=== PATIENT | male | born 1935 | race Caucasian/White ===

== ENCOUNTER 2018-02-08 18:44 | Inpatient (IN) ==
[2018-02-08] MEDS ORDERED: 0.9 % SODIUM CHLORIDE 1,000 ML IV ONE (19:04)
--- NOTE | 2018-02-08 19:25 | Emergency Department Note ---
Weakness HPI - General Chief complaint: Weakness Stated complaint: weakness Time Seen by Provider: 02/08/18 18:49 Source: patient, EMS Mode of arrival: ambulatory Limitations: no limitations - History of Present Illness HPI Narrative: 82-year-old male presents by EMS for hypotension and fall. His daughter came over to his house about 4 hours ago dropped off some things and she could not get into the house. She noticed that he was on the ground in the kitchen and was yelling that he was in the bedroom. He was face down. In the last couple of days he has had decreased appetite and has had some confusion. He had cataract surgery on Sunday. He lives at home and is independent but in this last week he has become more confused. He is confused today. His daughter states she talked to him last night and he was doing well and then came back today and he was on the floor. He denies any significant pain. EMS states he was at 86% oxygen at home and low blood pressure. No history of congestive heart failure. His daughter states he did not know who she was when she finally got in the house. She thinks he has been on level ground for at least 3 hours. She does not know before that. He is unable to give a recollection of this. When I ask him how he fell he states he tripped in the garage. He knows that he is at [facility] but does not know the date. He knows his daughter at this time. No focal deficits but he has global weakness. He does not take blood thinners. He states he did not take his blood pressure medication today. He has issues with high blood pressure usually. He seems to be a poor historian at this point. - Related Data Home Medications Medication Instructions Recorded Confirmed aspirin 81 mg tablet,delayed 81 mg PO QDAY 02/08/17 01/30/18 release vitamin B complex tablet 1 tab-cap PO QDAY 02/08/17 01/30/18 sodium chloride 0.65 % nasal spray 1 spray INTRANASAL Q4H PRN 10/02/17 01/30/18 aerosol Previous Rx's Medication Instructions Recorded losartan 50 mg tablet 50 mg PO BID #90 tab 01/30/18 umeclidinium 62.5 mcg-vilanterol 1 inh INHALATION Q24H #60 each 02/04/18 25 mcg/actuation powdr for inhalation Allergies Allergy/AdvReac Type Severity Reaction Status Date / Time No Known Drug Allergies Allergy Verified 01/30/18 08:00 Review of Systems All systems ED: reviewed and negative except as stated. Past Medical History - Past Medical History Medical history: Reports: COPD Psychiatric history: Reports: no psych history Surgical history ED: Reports: non-contributory Family history: Reports: non-contributory - Social History smoking status: Former smoker Physical Exam Right knee shows mild appearance and has significant bruising to his left elbow. He does not seem to have pain with range of motion but is tender over these bruises. He is unable to lift his arms and legs. He is able to squeeze slightly both of my fingers with both hands Limitations: no limitations General appearance: alert, in no apparent distress Head: atraumatic Eye: Present: normal appearance, PERRL, EOMI. Absent: conjunctival injection Neck: Present: normal inspection, full ROM. Absent: tenderness, lymphadenopathy Chest: Present: normal inspection, symmetric chest wall rise Respiratory: Present: wheezes (Mild throughout), other (Mild decreased right lower lobe) Cardiovascular: Present: tachycardia, normal heart sounds Abdominal: Present: soft, normal bowel sounds. Absent: tenderness Neurological: Present: alert, CN II-XII intact. Absent: oriented X3 Psychiatric: Present: flat affect Skin: Present: warm, dry, intact Course Course Narrative: ABG shows lactic acidosis. Normal pH. PCO2 28, PO2 56, hematocrit 43%, Given 2 L of oxygen and started on Levaquin. He will be admitted. Vital Signs Temperature 98 F 02/08/18 18:46 Pulse Rate 90 02/08/18 18:46 Respiratory Rate 26 H 02/08/18 18:46 Blood Pressure 100/71 02/08/18 18:46 Pulse Oximetry (%) 91 02/08/18 18:46 Temperature 98 F 02/08/18 18:46 Pulse Rate 103 H 02/08/18 21:11 Respiratory Rate 22 02/08/18 21:11 Blood Pressure 141/98 02/08/18 21:11 Pulse Oximetry (%) 93 02/08/18 21:11 Weakness - Lab Data Lab results reviewed: Yes I reviewed the patient's lab results. Result diagrams: 02/08/18 20:48 02/08/18 17:20 Lab Results 02/08/18 02/08/18 02/08/18 Range/Units 17:20 17:20 20:48 WBC TNP 22.0 H RBC TNP 4.99 Hgb TNP 14.6 Hct TNP 42.7 MCV TNP 85.6 MCH TNP 29.3 MCHC TNP 34.3 RDW TNP 14.1 Plt Count TNP 47 L* MPV TNP 8.7 Total Counted TNP Band Neutrophils % Not Reportable Not Reportable Platelet Estimate Not Reportable RBC Morphology Not Reportable Sodium 143 (133-145) mmol/L Potassium 3.7 (3.3-5.1) mmol/L Chloride 101 (96-108) mmol/L Carbon Dioxide 19 L (22-30) mmol/L Anion Gap 23.0 H (8-16) BUN 31 H (8-23) mg/dl Creatinine 1.4 H (0.7-1.2) mg/dl GFR Calculation 46 Glucose 140 H (70-105) mg/dL Calcium 8.6 (8.6-10.4) mg/dl Total Bilirubin 3.5 H (0.0-1.0) mg/dL AST 46 H (0-37) U/l ALT 15 (0-40) U/l Alkaline Phosphatase 124 H (39-117) U/L Total Creatine Kinase 833 H (24-195) IU/L CK-MB (CK-2) 23.5 H (0-4.9) ng/ml Myoglobin 876 H (28-72) ng/ml Total Protein 7.1 (5.9-8.4) gm/dL Albumin 3.5 (3.2-5.2) gm/dL Globulin 3.6 (2.2-3.7) gm/dL Albumin/Globulin Ratio 1.0 (1.0-2.3) Urine Color Urine Appearance Urine pH (5.0-9.0) Ur Specific [place] (1.000-1.035) Urine Protein (NEG) mg/dL Urine Glucose (UA) (NEG) mg/dL Urine Ketones (NEG) mg/dL Urine Occult Blood (<0.03) mg/dL Urine Nitrate (NEG) Urine Bilirubin (NEG) mg/dL Urine Urobilinogen (NEG) mg/dL Ur Leukocyte Esterase (NEG) /uL Urine RBC (0-1) /hpf Urine WBC (0-4) /hpf Ur Squamous Epith Cells (0-4) /hpf Ur Transition Epith Cell (0-2) /hpf Urine Bacteria (0) /hpf Cellular Casts (0) /lpf Hyaline Casts (0-2) /lpf Urine Mucus (0) /hpf Urine Yeast (Budding) (0) /hpf Ur Culture Indicated? 02/08/18 Range/Units 21:03 WBC RBC Hgb Hct MCV MCH MCHC RDW Plt Count MPV Total Counted Band Neutrophils % Platelet Estimate RBC Morphology Sodium (133-145) mmol/L Potassium (3.3-5.1) mmol/L Chloride (96-108) mmol/L Carbon Dioxide (22-30) mmol/L Anion Gap (8-16) BUN (8-23) mg/dl Creatinine (0.7-1.2) mg/dl GFR Calculation Glucose (70-105) mg/dL Calcium (8.6-10.4) mg/dl Total Bilirubin (0.0-1.0) mg/dL AST (0-37) U/l ALT (0-40) U/l Alkaline Phosphatase (39-117) U/L Total Creatine Kinase (24-195) IU/L CK-MB (CK-2) (0-4.9) ng/ml Myoglobin (28-72) ng/ml Total Protein (5.9-8.4) gm/dL Albumin (3.2-5.2) gm/dL Globulin (2.2-3.7) gm/dL Albumin/Globulin Ratio (1.0-2.3) Urine Color Rayna Urine Appearance Hazy Urine pH 5.0 (5.0-9.0) Ur Specific [place] 1.024 (1.000-1.035) Urine Protein 100 A (NEG) mg/dL Urine Glucose (UA) Negative (NEG) mg/dL Urine Ketones 5/tr A (NEG) mg/dL Urine Occult Blood 0.2 A (<0.03) mg/dL Urine Nitrate Neg (NEG) Urine Bilirubin Neg (NEG) mg/dL Urine Urobilinogen 4.0 A (NEG) mg/dL Ur Leukocyte Esterase Neg (NEG) /uL Urine RBC 3 H (0-1) /hpf Urine WBC 9 H (0-4) /hpf Ur Squamous Epith Cells 2 (0-4) /hpf Ur Transition Epith Cell < 1 (0-2) /hpf Urine Bacteria Few A (0) /hpf Cellular Casts 4 H (0) /lpf Hyaline Casts 121 H (0-2) /lpf Urine Mucus Many A (0) /hpf Urine Yeast (Budding) Few A (0) /hpf Ur Culture Indicated? Yes Disposition Pt seen by [employer] WORKER/PA only: No Clinical Impression: Rhabdomyolysis, Sepsis, UTI (urinary tract infection), Hypoxia Disposition: Xfer As Inpt ([facility]) Condition: Fair Referrals: Jann Hi PA-C [Primary Care Provider] -
[2018-02-08] MEDS: 0.9 % SODIUM CHLORIDE 1,000 ML IV ONE ×2 (19:30→20:10)
[2018-02-08 20:15] LABS: ALT/SGPT 15 U/l (0-40); Albumin 3.5 gm/dL (3.2-5.2); Alkaline Phosphatase 124 U/L (39-117); Blood Urea Nitrogen 31 mg/dl (8-23); Creatine Kinase 833 IU/L (24-195); Creatine Kinase MB 23.5 ng/ml (0-4.9); Myoglobin 876 ng/ml (28-72)
[2018-02-08] MEDS ORDERED: LEVOFLOXACIN 500 MG/100 ML BAG IV ONE (20:56)
[2018-02-08 21:35] LABS: Mean Cell Volume 85.6 fL (80.0-100.0); Mean Corpuscular HGB Conc 34.3 g/dL (31.0-36.0); Mean Corpuscular Hemoglobin 29.3 pg (26.0-34.0); Platelet Count 47 K/mcL (140-440); RBC 4.99 M/mcL (4.50-5.90); Red Cell Distribution Width 14.1 % (11.5-14.5)
[2018-02-08 21:42] LABS: Appearance,Urine HAZY; Bacteria,Urine FEW /hpf (0); Bilirubin,Urine NEG (NEG); Color,Urine AMBER; Glucose,Urine (UA) NEGATIVE (NEG); Leukocyte Esterase,Urine NEG /uL (NEG); Mucus,Urine MANY /hpf (0); Protein,Urine 100 mg/dL (NEG); Specific Gravity,Urine 1.024 (1.000-1.035); Urine Blood 0.2 mg/dL (<0.03); Urine Budding Yeast FEW /hpf (0); Urine Cellular Cast 4 /lpf (0); Urine Hyaline Cast 121 /lpf (0-2); Urine RBC 3 /hpf (0-1); Urine Squamous Epithelial Cell 2 /hpf (0-4); Urine Transitional Epi Cells < 1 /hpf (0-2); Urine WBC 9 /hpf (0-4)
--- NOTE | 2018-02-08 21:53 | Internal Med History&Physical ---
Medical - H&P: HPI Patient information: Note initiated : 02/08/18 at 9:51 pm Service Date, if different from initiated Date: [] Patient: Rey Klein 82 y/o M admitted on for weakness. Chief complaint: Weakness, found down History of present illness: Patient is an 82-year-old male with history of COPD, hypertension, history of benign vertigo in the past who was brought to the ED by EMS after being found down on the floor by his daughter. History is obtained in speaking with Dr. Jeronimo from the ED, reviewing the chart and old records which are summarized below, and interviewing the patient, was able to provide significant history by the time I see him. Patient states he fell to the floor last evening. When queried several times he is certain that it was last evening and they spent the night on his kitchen floor. He remembers talking to his daughter last evening, that's when she last spoke to him and do that he was well. He states he fell after that. He does not necessarily recall falling, does not recall tripping. States he just "fell over". Denies any antecedent chest pain or tightness. Unsure if he had loss of consciousness or dizziness prior to the fall. He does not remember. He states he spent the night there, his daughter knows that he was down for at least over 4 hours, she eventually found him face down on the kitchen floor. Upon EMS arrival, his blood pressure was low, reported as 80 over palp. In the ED blood pressure is been in the 90 to 100s, improving to the 120s after fluid. Pulse was initially 118, that has decreased into the low 100s. His initial oxygen saturation in the field was 86%, increased to 90% on 3-1/2 L, now maintaining 90% on 2 L. In the emergency department, is found to have leukocytosis; and as noted above, tachycardia and low blood pressures in the field, which responded to fluids; evidence of significant pyuria and bacteriuria consistent with acute cystitis. Lactate on ABG was elevated 2.5 consistent with sepsis. He is being admitted for sepsis from urinary source. Patient is complaining of some burning with urination. He denies any fevers or chills. He has chronic cough productive of whitish sputum, occurs more in the morning. He is being treated for COPD. He's had no nausea, vomiting, abdominal pain, diarrhea. She had no focal weaknesses, but just felt generally weak all over and was unable to get up from the floor. He denies any pain in his hips or pelvis. He did have some mid to lower back pain when he is rolled over, that is now resolved. 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 Former smoker. Does not drink alcohol. Medical - H&P: Meds Home Medications Medication Instructions Recorded Confirmed Type aspirin 81 mg tablet,delayed 81 mg PO QDAY 02/08/17 01/30/18 History release vitamin B complex tablet 1 tab-cap PO QDAY 02/08/17 01/30/18 History sodium chloride 0.65 % nasal spray 1 spray INTRANASAL Q4H PRN 10/02/17 01/30/18 History aerosol losartan 50 mg tablet 50 mg PO BID #90 tab 01/30/18 01/30/18 Rx umeclidinium 62.5 mcg-vilanterol 1 inh INHALATION Q24H #60 each 02/04/18 Rx 25 mcg/actuation powdr for inhalation Allergies Allergy/AdvReac Type Severity Reaction Status Date / Time No Known Drug Allergies Allergy Verified 01/30/18 08:00 Medical - H&P: Exam - Constitutional Vitals: Temp Pulse Resp BP Pulse Ox 98 F 103 H 22 141/98 93 02/08/18 18:46 02/08/18 21:11 02/08/18 21:11 02/08/18 21:11 02/08/18 21:11 GENERAL: Alert, oriented, in no acute distress. Cooperative, appears stated age. HEENT: Atraumatic. PERRL, 3 mm, conjunctiva clear, no scleral icterus. Hearing grossly intact. Oropharynx with tacky mucous membranes, no lip or gum lesions, no pharyngeal erythema or exudate. Tongue midline, palate rises symmetrically. NECK: Supple without meningismus, no thyromegaly RESPIRATORY: Breath sounds clear bilaterally without wheezes or rhonchi. Respiratory effort is unlabored. CARDIOVASCULAR: Regular rate and rhythm, no murmur gallop or rub. No peripheral edema. Carotid pulses 2+. GI: Abdomen soft, mild suprapubic tenderness, no guarding or rebound. Bowel sounds are present. No hepatosplenomegaly. LYMPHATIC: No cervical or supraclavicular lymphadenopathy MUSCULOSKELETAL: No joint erythema or swelling, no pain with passive range of motion of the hips, no pain with pelvic rock. Range of motion in extremities normal for age. Muscle mass diminshed throughout. Strength 4-/5 at the hip flexors, 4+/5 at the knees and ankles. Universal Grinder Tool 5/5. SKIN: Warm, dry. Eccymoses and mottling on the left>right knees. Skin turgor decreased. NEUROLOGIC: Cranial nerves II through XII grossly intact. Deep tendon reflexes 2+ at the biceps and 1+ at the patellas. Sensation intact to light touch bilaterally. PSYCHIATRIC: Alert, oriented x3, normal affect, good insight into his condition. Medical - H&P: Reslt - Labs CBC & Chem 7: 02/08/18 20:48 02/08/18 17:20 Labs: Short CBC 02/08/18 02/08/18 Range/Units 17:20 20:48 WBC TNP 22.0 H Hgb TNP 14.6 Hct TNP 42.7 Plt Count TNP 47 L* BMP 02/08/18 17:20 Sodium 143 Potassium 3.7 Chloride 101 Carbon Dioxide 19 L BUN 31 H Creatinine 1.4 H Glucose 140 H Calcium 8.6 Cardiac Enzymes 02/08/18 Range/Units 17:20 Total Creatine Kinase 833 H (24-195) IU/L CK-MB (CK-2) 23.5 H (0-4.9) ng/ml Liver Function 02/08/18 Range/Units 17:20 Total Bilirubin 3.5 H (0.0-1.0) mg/dL AST 46 H (0-37) U/l ALT 15 (0-40) U/l Alkaline Phosphatase 124 H (39-117) U/L Albumin 3.5 (3.2-5.2) gm/dL Urine 02/08/18 Range/Units 21:03 Urine Color Rayna Urine Appearance Hazy Urine pH 5.0 (5.0-9.0) Ur Specific [place] 1.024 (1.000-1.035) Urine Protein 100 A (NEG) mg/dL Urine Glucose (UA) Negative (NEG) mg/dL - EKG Data -: EKG Reviewed by Myself (ST at 103, RBBB, no acute changes) - Impressions Chest x-ray, reviewed, right hilar fullness persists from film earlier this month, no apparent acute infiltrate Medical - H&P: A/P (1) Sepsis Current visit: Yes Status: Acute (2) UTI (urinary tract infection) Current visit: Yes Status: Acute (3) Thrombocytopenia Current visit: Yes Status: Acute (4) Rhabdomyolysis Current visit: Yes Status: Acute - Narrative A/P Narrative: 82-year-old male, found down after a ground-level fall, found evidence of sepsis as well as mild rhabdomyolysis and thrombocytopenia. Sepsis. Presumptive source is the urine. Urine dip showed positive leukocyte esterase as well as nitrite, though formal lab testing reports those negative. He does have pyuria with bacteriuria concerning for urinary infection. Chest x- ray generally clear, he has stable mild pulmonary symptoms, so that's less likely a source. Usually confused, now awake and alert after receiving fluids and initial dose of antibiotics, DEVELOPER ANALYST infection is lower suspicion. Plan: Inpatient admission, continue IV fluids, continue levofloxacin, follow-up cultures, recheck lactate in 3 hours. Urinary tract infection. Presumptive with pyuria and bacteriuria. Plan: Continue with levofloxacin, follow-up culture. Thrombocytopenia. Platelet count 47,000. Most recently his platelet counts have been elevated over 500,000. Etiology unclear, could be related to sepsis. Do not suspect TTP. Would be unlikely to develop ITP in a short period of time, though remains possible. Manual inspection reported markedly reduced platelets and no mention of clumping, so 47,000 may be a true platelet count. Plan: Trend platelets. Acute hypoxic respiratory failure. Patient requiring oxygen to maintain adequate saturations. He is not on oxygen at home. Etiology may be from sepsis. Has improved initially. Plan: Continue with supplemental oxygen, wean as able. Consider further imaging if he continues to require oxygen. Rhabdomyolysis, mild. CPK total in the 800s. Minimal risk for nephrotoxicity at this level. Plan: Continue IV fluids, trend CK. Renal insufficiency. Patient appears to have chronic kidney disease, baseline creatinine 1.0-1.1. Now mildly elevated at 1.4, likely from prerenal causes from being down. Plan: Trend creatinine with fluids. Hypertension. Blood pressure was low at presentation, likely from accommodation of sepsis and dehydration from being down.. His improved after fluids. Plan: Hold antihypertensives for now, follow blood pressure COPD without exacerbation. Plan: Schedule DuoNeb. Prophylaxis: SCDs, will avoid heparins given his low platelet count. PPI. CODE STATUS: DO NOT RESUSCITATE.
[2018-02-08 22:16] LABS: Anisocytosis 1+ (NONE SEEN); Band Neutrophils % 17 % (0-10); Lymphocytes % 1 % (15-49); Metamyelocytes % 1 % (0-0); Monocytes % (Manual) 2 % (1-12); Platelet Estimate MKDECR (NORMAL); RBC Morphology ABNORMAL (NORMAL); Segmented Neutrophils % 77 % (38-78)
[2018-02-08] MEDS ORDERED: ONDANSETRON 4 MG/2 ML VIAL IV PRN (23:05)
[2018-02-08] MEDS ORDERED: HYDROcodone/APAP 5/325MG TABLET PO PRN (23:05)
[2018-02-08] MEDS ORDERED: ACETAMINOPHEN 325 MG TABLET PO PRN (23:05)
[2018-02-08] MEDS: 0.9 % SODIUM CHLORIDE 1,000 ML IV SCH (23:50)
[2018-02-09 05:10] LABS: Mean Cell Volume 88.3 fL (80.0-100.0); Mean Corpuscular HGB Conc 33.6 g/dL (31.0-36.0); Mean Corpuscular Hemoglobin 29.7 pg (26.0-34.0); Platelet Count 34 K/mcL (140-440); RBC 4.72 M/mcL (4.50-5.90); Red Cell Distribution Width 15.2 % (11.5-14.5)
[2018-02-09 05:21] LABS: Blood Urea Nitrogen 31 mg/dl (8-23)
--- NOTE | 2018-02-09 05:54 | XRay Report ---
CLINICAL INFORMATION: Trauma and hypoxia COMPARISON: Plain films from 11/29/2010, 04/07/2017 and 01/30/2018. Also chest CT from 12/05/2010 FINDINGS: Mild cardiomegaly is unchanged. There is mild enlargement of the right hilum and also mediastinal widening with increased density in the right peritracheal region which was not seen on older films. Suspect adenopathy or mass in these regions. It is also mildly narrowed the trachea. Underlying chronic bronchitis changes are noted. There is mild chronic interstitial fibrosis in the periphery of both lungs. Scattered left-sided calcified pleural plaques are noted. The IMPRESSION: Mild enlargement of the right hilum and widening of the mediastinum which were not seen on older films. Adenopathy in these regions is suspected, suggest chest CT Underlying chronic bronchitis and minimal interstitial fibrosis. Interstitial lung disease will also be better assessed with chest CT Scattered left-sided calcific pleural plaque - typically stigmata of old infection or hemorrhage. Interpreted and Authenticated by: Ryan Delatorre 02/09/18
[2018-02-09] MEDS: 0.9 % SODIUM CHLORIDE 10 ML SYRINGE IV SCH ×3 (05:56→21:52)
[2018-02-09] MEDS: IPRATROPIUM/ALBUTEROL 3 ML AMPUL.NEB NEB SCH ×4 (05:56→18:06)
[2018-02-09 05:57] LABS: Band Neutrophils % 11 % (0-10); Lymphocytes % 6 % (15-49); Monocytes % (Manual) 4 % (1-12); Platelet Estimate MK DECR (NORMAL); RBC Morphology NORMAL (NORMAL); Segmented Neutrophils % 79 % (38-78)
[2018-02-09] MEDS ORDERED: IPRATROPIUM/ALBUTEROL 3 ML AMPUL.NEB NEB ONE (05:57)
[2018-02-09] MEDS ORDERED: FAMOTIDINE 20 MG TABLET PO SCH (09:00)
--- NOTE | 2018-02-09 09:34 | Cat Scan Report ---
CLINICAL INFORMATION: Trauma - fall confusion and weakness COMPARISON: None. TECHNIQUE: 2.5 mm helical slices were obtained in the skull base to vertex. Following reconstruction, axial reformatted images were reviewed at bone and parenchymal windows. The exam was performed using radiation dose optimization techniques including, but not limited to, automated exposure control, adjustment of the mA and/or kV according to patient size and use of iterative reconstruction technique. FINDINGS: The ventricles, sulci, fissures, and cisterns are symmetrically enlarged compatible with moderate age-related atrophy - no extra-axial fluid collection or mass appreciated. Extensive chronic ischemic changes in the cerebral white matter appreciated. There is no intracerebral hemorrhage, edema or mass effect. Bone windows show no osseous abnormality. IMPRESSION: Moderate atrophy and extensive chronic ischemic changes in the deep cerebral white matter. No intracerebral hemorrhage, edema or other acute finding. Interpreted and Authenticated by: Ryan Delatorre 02/09/18
[2018-02-09 09:42] LABS: Bilirubin,Direct 0.7 mg/dL (0.0-0.3)
[2018-02-09] MEDS: LEVOFLOXACIN 500 MG/100 ML BAG IV SCH (09:43)
--- NOTE | 2018-02-09 11:06 | Internal Med Progress Note ---
Medical - PN: Subj Patient information: Note initiated : 02/09/18 at 11:02 am Service Date, if different from initiated Date: [] Patient: Rey Klein 82 y/o M admitted on 02/08/18 for weakness. Chief Complaint: f/u Sepsis, new possible CVA Interval history: 02/08 Patient is an 82-year-old male with history of COPD, hypertension, history of benign vertigo in the past who was brought to the ED by EMS after being found down on the floor by his daughter. History is obtained in speaking with Dr. Jeronimo from the ED, reviewing the chart and old records which are summarized below, and interviewing the patient, was able to provide significant history by the time I see him. Patient states he fell to the floor last evening. When queried several times he is certain that it was last evening and they spent the night on his kitchen floor. He remembers talking to his daughter last evening, that's when she last spoke to him and do that he was well. He states he fell after that. He does not necessarily recall falling, does not recall tripping. States he just "fell over". Denies any antecedent chest pain or tightness. Unsure if he had loss of consciousness or dizziness prior to the fall. He does not remember. He states he spent the night there, his daughter knows that he was down for at least over 4 hours, she eventually found him face down on the kitchen floor. Upon EMS arrival, his blood pressure was low, reported as 80 over palp. In the ED blood pressure is been in the 90 to 100s, improving to the 120s after fluid. Pulse was initially 118, that has decreased into the low 100s. His initial oxygen saturation in the field was 86%, increased to 90% on 3-1/2 L, now maintaining 90% on 2 L. In the emergency department, is found to have leukocytosis; and as noted above, tachycardia and low blood pressures in the field, which responded to fluids; evidence of significant pyuria and bacteriuria consistent with acute cystitis. Lactate on ABG was elevated 2.5 consistent with sepsis. He is being admitted for sepsis from urinary source. Patient is complaining of some burning with urination. He denies any fevers or chills. He has chronic cough productive of whitish sputum, occurs more in the morning. He is being treated for COPD. He's had no nausea, vomiting, abdominal pain, diarrhea. She had no focal weaknesses, but just felt generally weak all over and was unable to get up from the floor. He denies any pain in his hips or pelvis. He did have some mid to lower back pain when he is rolled over, that is now resolved. 02/09 Called this morning, approximately 8:20, neuro check reveals left-sided weakness. This is a new finding. He was generally weak and admission, which was status during initial assessment about 10:30 last evening upon arrival to the floor. Code stroke activated, repeat head CT does not show new findings, chronic old ischemic changes are present however. Discussed with the tele- stroke service, patient is not a candidate for treatment based on both time frame since onset of symptoms as well as his thrombocytopenia. Patient initially some dysarthria, has improved somewhat. Notes he's having trouble moving his left arm. Still with some dyspnea, coughing. Provides further history that he had hemoptysis during 2016 after he stopped smoking in October of that year. Reviewing clinic notes, he did report that he is coughing up clear phlegm to his primary care provider, but did not report the hemoptysis. Old imaging reviewed, his chest radiograph from 10 days ago (obtained due to his COPD) revealed possible narrowing of the trachea as well as right hilar fullness. Some point need had imaging showing a right hilar nodule, though seems to be more prominent. His white count remains elevated, his lactate went to 3/90, repeat is pending, is continued to be hydrated. Platelets have dropped to 34,000. Slide review shows markedly decreased platelet count, no comment on large platelets are clumping. Bandemia is improving. Hemodynamics have improved, blood pressures are normal/high normal, creatinine has normalized to his baseline at 1.1. - Constitutional Vitals: Vital Signs Temp Pulse Resp BP Pulse Ox 98.3 F 108 H 27 H 126/90 90 02/09/18 04:01 02/09/18 06:07 02/09/18 04:08 02/09/18 04:01 02/09/18 04:08 Period Temp Pulse Resp BP Sys/Flores Pulse Ox Last 24 Hr 98 F-98.3 F 90-110 19-32 84-145/65-98 85-100 Intake and Output 02/08/18 02/09/18 02/09/18 21:59 05:59 13:59 Intake Total 1000 / 1000 1250 / 1250 Output Total 2 / 2 Balance 1000 / 1000 1248 / 1248 Weight 174 lb 174 lb General: In bed, no distress Chest: Coarse bilateral breath sounds, no wheezes. Cardiovascular: Regular rate and rhythm. No edema Abdomen: Soft, nontender Neuro: Alert, oriented to person, place, situation, date. Mild dysarthria. Pupils are equal. Face is symmetric at my exam. Motor on the left upper extremity shows 2/5 at the left shoulder, 3/5 at the triceps, 2/5 at the biceps , 3/5 in the maint mechanic. Motor in the left lower extremity, 2/5 in hip flexors, knee flexors, knee extensors. 3/5 ankle flexors and extensors. On the right upper extremity, 5-/5 strength, in the right lower extremity he is unable to flex his hip off the bed, however once its raise passively he is able to hold it against gravity and provide some resistance. This is the same exam as yesterday. Intake & Output: Intake & Output 02/08/18 02/09/18 02/09/18 21:59 05:59 13:59 Intake Total 1000 / 1000 1250 / 1250 Output Total 2 / 2 Balance 1000 / 1000 1248 / 1248 Weight 174 lb 174 lb Intake: IV 1000 / 1000 1100 / 1100 Sodium Chloride 0.9% 1,000 ml @ 1000 / 1000 1000 / 1000 Wide Open IV BOLUS ONE Rx#: [id number] Oral 150 / 150 Output: # of times incontinent of urine / Medical - PN: Obj Da - Labs CBC & Chem 7: 02/09/18 03:40 02/09/18 03:40 Labs: Abnormal Lab Results 02/09/18 02/09/18 02/09/18 08:56 03:50 03:40 WBC 21.8 H RDW 15.2 H Plt Count 34 L* Seg Neutrophils % 79 H Band Neutrophils % 11 H Lymphocytes % 6 L Metamyelocytes % Nucleated RBCs Platelet Estimate Mk decr A Polychromasia Anisocytosis POC PT 18.4 H POC INR 1.6 H VBG Lactic Acid Carbon Dioxide Anion Gap BUN Creatinine Glucose Calcium Total Bilirubin 3.2 H Direct Bilirubin 0.7 H AST 49 H Alkaline Phosphatase Total Creatine Kinase 720 H CK-MB (CK-2) Myoglobin Albumin 3.0 L Urine Protein Urine Ketones Urine Occult Blood Urine Urobilinogen Urine RBC Urine WBC Urine Bacteria Cellular Casts Hyaline Casts Urine Mucus Urine Yeast (Budding) 02/09/18 02/09/18 02/08/18 03:40 01:40 21:03 WBC RDW Plt Count Seg Neutrophils % Band Neutrophils % Lymphocytes % Metamyelocytes % Nucleated RBCs Platelet Estimate Polychromasia Anisocytosis POC PT POC INR VBG Lactic Acid 3.0 H Carbon Dioxide 18 L Anion Gap 20.0 H BUN 31 H Creatinine Glucose Calcium 7.9 L Total Bilirubin Direct Bilirubin AST Alkaline Phosphatase Total Creatine Kinase CK-MB (CK-2) Myoglobin Albumin Urine Protein 100 A Urine Ketones 5/tr A Urine Occult Blood 0.2 A Urine Urobilinogen 4.0 A Urine RBC 3 H Urine WBC 9 H Urine Bacteria Few A Cellular Casts 4 H Hyaline Casts 121 H Urine Mucus Many A Urine Yeast (Budding) Few A 02/08/18 02/08/18 20:48 17:20 WBC 22.0 H RDW Plt Count 47 L* Seg Neutrophils % Band Neutrophils % 17 H Lymphocytes % 1 L Metamyelocytes % 1 H Nucleated RBCs 1 H Platelet Estimate Polychromasia Occ A Anisocytosis 1+ A POC PT POC INR VBG Lactic Acid Carbon Dioxide 19 L Anion Gap 23.0 H BUN 31 H Creatinine 1.4 H Glucose 140 H Calcium Total Bilirubin 3.5 H Direct Bilirubin AST 46 H Alkaline Phosphatase 124 H Total Creatine Kinase 833 H CK-MB (CK-2) 23.5 H Myoglobin 876 H Albumin Urine Protein Urine Ketones Urine Occult Blood Urine Urobilinogen Urine RBC Urine WBC Urine Bacteria Cellular Casts Hyaline Casts Urine Mucus Urine Yeast (Budding) Meds: Medications Acetaminophen (Tylenol) 650 mg PO Q6HP PRN PRN Reason: PAIN/FEVER > 101 Hydrocodone Bitart/Acetaminophen (Eminence 5/325mg) 1 tab PO Q4HP PRN PRN Reason: PAIN LEVEL 3-6 Albuterol/Ipratropium (Duoneb) 3 [id number] Last Admin: 02/09/18 06:04 Dose: Not Given Levofloxacin (Levaquin) 500 mg in 100 mls @ 100 mls/hr IV Q24H [facility] Last Admin: 02/09/18 09:43 Dose: 100 mls/hr Sodium Chloride (Sodium Chloride 0.9%) 1,000 mls @ 100 mls/hr IV .Q10H [facility] Last Admin: 02/08/18 23:50 Dose: 100 mls/hr Ondansetron HCl (Zofran) 4 mg IV Q4HP PRN PRN Reason: Nausea And Vomiting Sodium Chloride (Saline Flush) 10 ml IV Q8 [facility] Last Admin: 02/09/18 05:56 Dose: 10 ml - Impressions Scans reviewed and discussed with Dr. Ocasio at time of reading 02/[address] head 02/09 AM FINDINGS: The ventricles, sulci, fissures, and cisterns are symmetrically enlarged compatible with moderate age-related atrophy - no extra-axial fluid collection or mass appreciated. Extensive chronic ischemic changes in the cerebral white matter appreciated. There is no intracerebral hemorrhage, edema or mass effect. Bone windows show no osseous abnormality. IMPRESSION: Moderate atrophy and extensive chronic ischemic changes in the deep cerebral white matter. No intracerebral hemorrhage, edema or other acute finding. CT Head 02/08 PM, final report FINDINGS: The ventricles, sulci, fissures, and cisterns are symmetrically enlarged compatible with moderate age-related atrophy - no extra-axial fluid collection or mass appreciated. Extensive chronic ischemic changes in the cerebral white matter appreciated. There is no intracerebral hemorrhage, edema or mass effect. Bone windows show no osseous abnormality. IMPRESSION: Moderate atrophy and extensive chronic ischemic changes in the deep cerebral white matter. No intracerebral hemorrhage, edema or other acute finding. Medical - PN: A/P - Time Spent With Patient Total time spent is greater than 50% in coordination of care (as documented) at patient's floor/unit and/or counseling patient: Greater than 35 minutes (40 minutes critical care time 02/09/18) (1) Right-sided cerebrovascular accident (CVA) Status: Acute Current Visit: Yes (2) Sepsis Status: Acute Current Visit: Yes (3) UTI (urinary tract infection) Status: Acute Current Visit: Yes (4) Thrombocytopenia Status: Acute Current Visit: Yes (5) Rhabdomyolysis Status: Acute Current Visit: Yes (6) Acute respiratory failure with hypoxia Status: Acute Current Visit: Yes - Narrative A/P Narrative: 82-year-old male, found down after a ground-level fall, found evidence of sepsis as well as mild rhabdomyolysis and thrombocytopenia. Now with acute left -sided weakness. Left-sided weakness, concern for acute CVA. Patient was generally weak on exam yesterday in the ED, and upon arrival. He denies any recent focal weaknesses. The findings this morning are new. Stat CT is unchanged, chronic ischemic changes. Discussed with stroke service, given timing of symptoms (last known normal at about 10:30 last night) and his significant thrombocytopenia, not a candidate for further lytic treatments. Plan: Obtain MRI to definitively evaluate for cerebral ischemia. Patient is not a candidate for antiplatelet therapy given his thrombocytopenia, will not give aspirin or Plavix. He has mild rhabdo, at this point will avoid statins as well. Plan to maintain perfusion, allow permissive hypertension, keep hydrated, PT/OT/ST evaluations. Echocardiogram when available. Ending findings of MRI, will need imaging of the cerebral vasculature as well. Sepsis. Presumptive source is the urine. Lactate remained elevated overnight, repeat lactate is pending. His remained afebrile. Pulse steady at about 100. Blood pressure is normal. Plan: Continue IV fluids, continue levofloxacin, follow-up cultures and lactate. Urinary tract infection. Presumptive with pyuria and bacteriuria. Plan: Continue with levofloxacin, follow-up culture. Thrombocytopenia. Platelet count now 34,000. Last laboratory values available showed platelet count of 500,000 in 02/2017, with normal white count and hemoglobin. Peripheral smear shows markedly decreased platelets, no clumping or large platelets. No evidence of purpura, does not have concurrent anemia, however still has leukocytosis. This does not appear to be a microangiopathic hemolytic anemia type syndrome or TTP. Given development of leukocytosis with immature granulocytes on smear and low platelets, query whether this could be a primary bone marrow process such as leukemia. Unlikely marrow failure, given normal hemoglobin. ITP possibility, as is sepsis related. Patient does have a history of significant alcohol use in the past, is tapered off, occult hypersplenism is also a possibility. Plan: Trend platelets, avoid aspirin and Plavix, imaging the abdomen, least upper cuts will be obtained with CT of the chest which is being obtained for reasons noted below. Acute hypoxic respiratory failure. Patient still requiring oxygen to maintain adequate saturations. He is not on oxygen at home, but does carry a diagnosis of COPD and does use an inhaler. Radiographs are reviewed, does have abnormal chest radiograph, which seems to progressed over the last year. Also now gives a history of hemoptysis last year. Plan: Continue with supplemental oxygen, wean as able. CT of the chest, including CT angiography to rule out pulmonary embolism (query PE and syncope as cause of fall). Rhabdomyolysis, mild. CPK total in the 800s. Minimal risk for nephrotoxicity at this level. Plan: Continue IV fluids, trend CK. Renal insufficiency. Resolved with IV fluids, back to baseline. Plan: Trend creatinine. Hypertension. Blood pressure was low at presentation, likely from accommodation of sepsis and dehydration from being down. Resolved after fluid resuscitation. Plan: Hold antihypertensives given new possible stroke, allow permissive hypertension, follow blood pressure COPD without exacerbation. Plan: Schedule DuoNeb. Medical - PN: Qual - VTE Deep Vein Thrombosis/Pulmonary Embolism Present on Admission: No
[2018-02-09] MEDS: 0.9 % SODIUM CHLORIDE 1,000 ML IV SCH ×2 (13:00→19:28)
--- NOTE | 2018-02-09 13:04 | Magnetic Resonance Report ---
CLINICAL INFORMATION: Left-sided weakness confusion COMPARISON: None. TECHNIQUE: Sagittal T1, axial diffusion ADC T2 FLAIR images were taken. Exam was suboptimal due to motion artifact FINDINGS: Diffusion images show multiple foci of restricted diffusion involving the cortical and subcortical white matter of both frontal, parietal and occipital lobes - more prominent near vertex. There are also extensive foci of restricted diffusion in the the peripheral cerebellar hemispheres. Findings compatible with multiple acute nonhemorrhagic lacunar infarcts. The ventricle, sulci, fissures and cisterns are symmetrically enlarged compatible with moderate atrophy. No extra-axial fluid collections appreciated. Extensive chronic ischemic changes noted in the the cerebral white matter. Small amount of edema is seen about the acute infarct infarct, but no evidence of hemorrhage. IMPRESSION: Multiple acute nonhemorrhagic lacunar infarcts widely disseminated throughout the cortical and subcortical white matter of the frontal, parietal, occipital and posterior cerebellum. Most common cause would be multiple emboli from a cardiac source. Interpreted and Authenticated by: Ryan Delatorre 02/09/18
[2018-02-09] MEDS ORDERED: IOPAMIDOL 100 ML BOTTLE IV ONE (13:21)
[2018-02-09] MEDS ORDERED: 0.9 % SODIUM CHLORIDE 1,000 ML IV ONE (14:32)
--- NOTE | 2018-02-09 17:44 | Cat Scan Report ---
CLINICAL INFORMATION: Shortness of breath. Right hilar mass and mediastinal adenopathy COMPARISON: Chest CT 12/05/2010. TECHNIQUE: 80 cc of Isovue-300 were injected intravenously. Using SmartPrep to maximize pulmonary artery opacification, 2.5 mm helical slices were obtained from the lung apices through the lung bases. Following reconstruction, 2.5 mm sagittal, coronal, and axial reformations were processed. The exam was reviewed at mediastinal, lung, and bone windows. The exam was performed using radiation dose optimization techniques including, but not limited to, automated exposure control, adjustment of the mA and/or kV according to patient size and use of iterative reconstruction technique. FINDINGS: There is a large (6 cm) mass in the right inferior hilum which has completely obstructed the right lower lobe bronchus and markedly narrowed the right lower lobe pulmonary artery. As result, there is complete atelectasis of the right lower lobe. There is also endobronchial mass extension into the bronchus intermedius and right mainstem bronchus which are both subtotally occluded. Mild underlying chronic bronchitis throughout both lungs with mild scattered areas of fibrosis which has progressed from the previous study. Small right pleural effusion noted. There are markedly enlarged lymph nodes in the right hilum, pericarinal and right peritracheal region which are new. Moderately enlarged lymph nodes in the AP window and aortic arch region are seen as well. The thoracic aorta is normal in contour and caliber with heavy fibrofatty calcific plaque. There is scattered emboli within the pulmonary arteries with a small saddle emboli in the left upper and left lower lobe pulmonary arteries and occlusive embolus in the posterior and anterior segmental left lower lobe pulmonary arteries and also the subsegmental anterior segment left upper lobe. Esophagus is grossly normal. The heart is mildly enlarged and there is fibrofatty calcific plaque in the coronary arteries. 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 There is also endobronchial extension into the bronchus intermedius and right mainstem bronchus which are subtotally occluded. Markedly enlarged lymph nodes in the right hilum, the pericarinal and right peritracheal region are almost certainly metastatic. If tissue diagnosis is desired, suggest CT-guided biopsy of large right infrahilar mass Scattered segmental and subsegmental pulmonary artery emboli Small right pleural effusion Underlying chronic bronchitis Interpreted and Authenticated by: Ryan Delatorre 02/09/18
--- NOTE | 2018-02-09 17:47 | Cat Scan Report ---
CLINICAL INFORMATION: Multiple embolic infarcts in the cerebrum COMPARISON: None. TECHNIQUE: 80 cc of Isovue-300 were injected intravenously , and using SmartPrep to maximize cerebral arterial opacification, 0.625 mm helical slices were obtained from the skull base through the cerebral vertex. Following reconstruction , sagittal, coronal and axial reformatted images were processed and reviewed at multiple windows and levels. 3D volume rendered and MIP images were acquired at a independent workstation. The exam was performed using radiation dose optimization techniques including, but not limited to, automated exposure control, adjustment of the mA and/or kV according to patient size and use of iterative reconstruction technique. FINDINGS: Thoracic aortic arch is normal in diameter with diffuse intimal thickening. Aortic branching is conventional. The brachiocephalic, both subclavian, vertebral, common, internal and external carotid arteries are widely patent. IMPRESSION: Negative Arteriogram Interpreted and Authenticated by: Ryan Delatorre 02/09/18
--- NOTE | 2018-02-09 17:50 | Cat Scan Report ---
CLINICAL INFORMATION: COMPARISON: None. TECHNIQUE: 80 cc of Isovue-300 were injected intravenously , and using SmartPrep to maximize cerebral arterial opacification, 0.625 mm helical slices were obtained from the skull base through the cerebral vertex. Following reconstruction , sagittal, coronal and axial reformatted images were processed and reviewed at multiple windows and levels. 3D volume rendered and MIP images were acquired at a independent workstation. The exam was performed using radiation dose optimization techniques including, but not limited to, automated exposure control, adjustment of the mA and/or kV according to patient size and use of iterative reconstruction technique. FINDINGS: Intracranial internal carotid, anterior and middle cerebral, intracranial vertebral basilar and posterior cerebral arteries are normal in contour and caliber and well opacified. No evidence of occlusion or significant stenosis IMPRESSION: Negative Interpreted and Authenticated by: Ryan Delatorre 02/09/18
[2018-02-10] MEDS: 0.9 % SODIUM CHLORIDE 1,000 ML IV SCH (04:19)
[2018-02-10 05:38] LABS: Blood Urea Nitrogen 25 mg/dl (8-23)
[2018-02-10] MEDS: IPRATROPIUM/ALBUTEROL 3 ML AMPUL.NEB NEB SCH ×2 (05:46→12:22)
[2018-02-10 05:47] LABS: Band Neutrophils % 7 % (0-10); Lymphocytes % 3 % (15-49); Monocytes % (Manual) 6 % (1-12); Platelet Estimate NORMAL (NORMAL); RBC Morphology NORMAL (NORMAL); Segmented Neutrophils % 84 % (38-78)
[2018-02-10 05:53] LABS: Mean Cell Volume 88.5 fL (80.0-100.0); Mean Corpuscular HGB Conc 33.6 g/dL (31.0-36.0); Mean Corpuscular Hemoglobin 29.7 pg (26.0-34.0); Platelet Count 18 K/mcL (140-440); RBC 4.55 M/mcL (4.50-5.90); Red Cell Distribution Width 15.4 % (11.5-14.5)
[2018-02-10] MEDS: 0.9 % SODIUM CHLORIDE 10 ML SYRINGE IV SCH (06:20)
[2018-02-10] MEDS ORDERED: prednisoLONE 1% OPHTH DROPS 1ML BOTTLE OD SCH (09:00)
[2018-02-10] MEDS ORDERED: 0.45 % SODIUM CHLORIDE 1,000 ML IV SCH (09:00)
[2018-02-10] MEDS: LEVOFLOXACIN 500 MG/100 ML BAG IV SCH (09:27)
[2018-02-10] MEDS ORDERED: ALBUTEROL SULFATE 2.5 MG/3 ML NEBULIZER NEB PRN ×2 (09:47→12:18)
[2018-02-10] MEDS: morphine 20 MG/ML ORAL.CONC SL PRN ×4 (10:10→13:51)
[2018-02-10] MEDS: LORazepam 1 MG TABLET SL PRN ×4 (10:22→13:51)
[2018-02-10] MEDS ORDERED: ACETAMINOPHEN 1,000 MG/100 ML BOTTLE IV PRN (12:18)
[2018-02-10] MEDS ORDERED: ONDANSETRON 4 MG/2 ML VIAL IV PRN (12:18)
[2018-02-10] MEDS ORDERED: 0.9 % SODIUM CHLORIDE 10 ML SYRINGE IV SCH (14:00)
--- NOTE | 2018-02-10 16:06 | Death Note ---
Discharge Sum: Prov - Provider Patient information: Note initiated : 02/10/18 at 4:04 pm Service Date, if different from initiated Date: [] Patient: Rey Klein 82 y/o M admitted on 02/08/18 for weakness. Primary care physician: Jann Hi Admitting clinician: Esther Ward Pronouncing clinician: Esther Ward Discharge Sum: Diag - PCOD Cause of : Acute respiratory failure (with hypoxia) Discharge Sum: Summary - Date and Time Date of admission: 02/08/18 22:58 Date of : 02/10/18 Time of : 14:42 - Summary Details: 02/08 Patient is an 82-year-old male with history of COPD, hypertension, history of benign vertigo in the past who was brought to the ED by EMS after being found down on the floor by his daughter. History is obtained in speaking with Dr. Jeronimo from the ED, reviewing the chart and old records which are summarized below, and interviewing the patient, was able to provide significant history by the time I see him. Patient states he fell to the floor last evening. When queried several times he is certain that it was last evening and they spent the night on his kitchen floor. He remembers talking to his daughter last evening, that's when she last spoke to him and do that he was well. He states he fell after that. He does not necessarily recall falling, does not recall tripping. States he just "fell over". Denies any antecedent chest pain or tightness. Unsure if he had loss of consciousness or dizziness prior to the fall. He does not remember. He states he spent the night there, his daughter knows that he was down for at least over 4 hours, she eventually found him face down on the kitchen floor. Upon EMS arrival, his blood pressure was low, reported as 80 over palp. In the ED blood pressure is been in the 90 to 100s, improving to the 120s after fluid. Pulse was initially 118, that has decreased into the low 100s. His initial oxygen saturation in the field was 86%, increased to 90% on 3-1/2 L, now maintaining 90% on 2 L. In the emergency department, is found to have leukocytosis; and as noted above, tachycardia and low blood pressures in the field, which responded to fluids; evidence of significant pyuria and bacteriuria consistent with acute cystitis. Lactate on ABG was elevated 2.5 consistent with sepsis. He is being admitted for sepsis from urinary source. Patient is complaining of some burning with urination. He denies any fevers or chills. He has chronic cough productive of whitish sputum, occurs more in the morning. He is being treated for COPD. He's had no nausea, vomiting, abdominal pain, diarrhea. She had no focal weaknesses, but just felt generally weak all over and was unable to get up from the floor. He denies any pain in his hips or pelvis. He did have some mid to lower back pain when he is rolled over, that is now resolved. 02/09 Called this morning, approximately 8:20, neuro check reveals left-sided weakness. This is a new finding. He was generally weak and admission, which was status during initial assessment about 10:30 last evening upon arrival to the floor. Code stroke activated, repeat head CT does not show new findings, chronic old ischemic changes are present however. Discussed with the tele- stroke service, patient is not a candidate for treatment based on both time frame since onset of symptoms as well as his thrombocytopenia. Patient initially some dysarthria, has improved somewhat. Notes he's having trouble moving his left arm. Still with some dyspnea, coughing. Provides further history that he had hemoptysis during 2017 after he stopped smoking in October of that year. Reviewing clinic notes, he did report that he is coughing up clear phlegm to his primary care provider, but did not report the hemoptysis. Old imaging reviewed, his chest radiograph from 10 days ago (obtained due to his COPD) revealed possible narrowing of the trachea as well as right hilar fullness. Some point need had imaging showing a right hilar nodule, though seems to be more prominent. His white count remains elevated, his lactate went to 3/90, repeat is pending, is continued to be hydrated. Platelets have dropped to 34,000. Slide review shows markedly decreased platelet count, no comment on large platelets are clumping. Bandemia is improving. Hemodynamics have improved, blood pressures are normal/high normal, creatinine has normalized to his baseline at 1.1. 02/10 Significant events in evaluation the patient since his stroke presentation yesterday morning. MRI of the brain showed: "IMPRESSION: Multiple acute nonhemorrhagic lacunar infarcts widely disseminated throughout the cortical and subcortical white matter of the frontal, parietal, occipital and posterior cerebellum. Most common cause would be multiple emboli from a cardiac source." CT angiography of the head and neck showed with patent vasculature. CT of the chest, obtained due to his abnormal chest radiograph and hypoxic respiratory failure showed: "IMPRESSION: 6 cm mass (pulmonary malignancy) in the inferior right hilum completely obstructing the right lower lobe bronchus causing complete right lower lobe atelectasis. There is also endobronchial extension into the bronchus intermedius and right mainstem bronchus which are subtotally occluded. Markedly enlarged lymph nodes in the right hilum, the pericarinal and right peritracheal region are almost certainly metastatic. If tissue diagnosis is desired, suggest CT-guided biopsy of large right infrahilar mass Scattered segmental and subsegmental pulmonary artery emboli Small right pleural effusion Underlying chronic bronchitis" I met with the patient, his daughter and granddaughter to discuss these results. At that juncture, he had evidence of acute stroke, newly diagnosed lung cancer with advanced stage, at least 3B, thrombocytopenia which is unexplained as well as ongoing mild rhabdomyolysis. He is unable to be treated with antiplatelet agents for his stroke due to his platelet count. Statins are relatively contraindicated for stroke treatment as well due to his rhabdomyolysis. It is not safe to anticoagulate for the pulmonary emboli due to his thrombocytopenia. And underlying all this is a new diagnosis of advanced lung cancer. The patient had stated to me at the time of admission that he had not wanted aggressive treatment, particularly since he had seen his undergo treatment for lung cancer, apparently dying of cardiopulmonary arrest in hospital with resuscitation attempt. He wanted to be DO NOT RESUSCITATE at admission. After further discussion with him and his family, he wanted to be comfortable. At that point, he is going to be treated expectantly, supportive care for stroke, see how his course went. This morning, the patient's condition worsened. He is having more difficulty speaking. His respirations were becoming labored and he was struggling. He had decreased breath sounds throughout his right hemithorax. In light of conversations from yesterday, I discussed the situation with his daughter and advised aggressive symptom control and palliation. The patient was formally transitioned to comfort care. Additionally, platelet count had fallen to 18, 000 and WBC increased to 25,000 with normal hemoglobin. Etiology remans unclear The patient became less responsive, and was treated with morphine and lorazepam for dyspnea and labored breathing. He at 14:42hr on 02/10/2018. Cause of : Acute respiratory failure with hypoxia, secondary to pulmonary neoplasm ( unidentified type) Conditions present and contributing to cause of : Sepsis from presumed urinary source Acute multifocal cerebrovascular accident Chronic obstructive pulmonary disease Pulmonary emboli Other diagnoses treated: Thrombocytopenia, undetermined etiology Rhabdomyolysis, mild The patient was an acute cerebrovascular accident, he was not treated with thrombolytics as he was outside the window of treatment, tele-stroke neurologist was consulted. He did not receive aspirin or anticoagulants due to comfort measures. He also had new VTE diagnosed, did not receive anticoagulation due to contraindication from thrombocytopenia (severe) as well as institution of comfort measures. 45 min physician time of day of patient discharge/, >50% counseling and coordination of care. - Additional Data Confirmation of as documented by pronouncing clinician: no pulse, no respirations, no heart sounds, pupils fixed and dilated Family: at bedside Attending physician: Esther Ward Was code activated?: No Autopsy requested?: No Organ bank notified?: Yes
[2018-02-10] MEDS ORDERED: IPRATROPIUM/ALBUTEROL 3 ML AMPUL.NEB NEB SCH (18:00)
== END 2018-02-10 16:38 | disposition expired | DRG 871 ==
LOC: ED 18:44 → ICU 22:58 → MEDSUR 02-10 12:07
PROVIDERS: ADMIT Internal Medicine; ATTEND Internal Medicine